=== PATIENT | female | born 1995 | race Asian ===

== ENCOUNTER → 2024-04-05 17:36 | Outpatient (REF) | payer OTHER, SELFPAY | LOC: MRI 3T 17:36 | PROVIDERS: ATTENDING PHYSICIAN Specialist; FAMILY PHYSICIAN Physician Assistant Medical | DX: G35 Multiple sclerosis (principal) | CPT/HCPCS: 70553; A9575 ==

== ENCOUNTER → 2024-06-02 15:42 | Outpatient (REF) | payer OTHER, SELFPAY | LOC: HWRCS 15:42 | PROVIDERS: ATTENDING PHYSICIAN Internal Medicine Critical Care Medicine; FAMILY PHYSICIAN Physician Assistant Medical | DX: R05.3 Chronic cough (principal) | CPT/HCPCS: 93306 ==

== ENCOUNTER 2024-12-29 06:17 | Day surgery (SDC) | payer OTHER, SELFPAY | END 2024-12-29 11:44 | disposition home or self-care (01) | LOC: GI 06:17 | PROVIDERS: ATTENDING PHYSICIAN Internal Medicine; FAMILY PHYSICIAN Physician Assistant Medical | DX: K21.00 Gastro-esophageal reflux disease with esophagitis, without bleeding (principal) | CPT/HCPCS: 43239; 88305; 88342 ==

== ENCOUNTER → 2025-02-12 09:56 | Outpatient (REF) | payer OTHER, SELFPAY | LOC: HWRAD 09:56 | PROVIDERS: ATTENDING PHYSICIAN Advanced Practice Midwife; FAMILY PHYSICIAN Physician Assistant Medical | DX: R10.2 Pelvic and perineal pain (principal) | CPT/HCPCS: 76830; 76856 ==

== ENCOUNTER → 2025-03-14 09:17 | Outpatient (REF) | payer OTHER, SELFPAY | LOC: PAVMRI 09:17 | PROVIDERS: ATTENDING PHYSICIAN Internal Medicine; FAMILY PHYSICIAN Physician Assistant Medical | DX: R16.0 Hepatomegaly, not elsewhere classified (principal) | CPT/HCPCS: 74183; A9575 ==

== ENCOUNTER 2025-07-02 06:28 | Day surgery (SDC) | payer OTHER, SELFPAY | END 2025-07-02 16:09 | disposition home or self-care (01) | LOC: GI 06:28 | PROVIDERS: ATTENDING PHYSICIAN Internal Medicine | DX: R10.84 Generalized abdominal pain (principal); R19.4 Change in bowel habit; R11.2 Nausea with vomiting, unspecified | CPT/HCPCS: 45380; 43239; 88305; 88342 ==

== ENCOUNTER → 2025-10-12 14:01 | Outpatient (REF) | payer OTHER, SELFPAY | LOC: PAVMRI 14:01 | PROVIDERS: ATTENDING PHYSICIAN Internal Medicine; FAMILY PHYSICIAN Physician Assistant Medical | DX: D13.4 Benign neoplasm of liver (principal) | CPT/HCPCS: 74183; A9581 ==